=== PATIENT | male | born 1970 | race Hispanic/Latino ===

== ENCOUNTER 2021-06-17 00:01 | Emergency (ER) | payer BC ==
[2021-06-17 00:47] LABS: #Eosinphils 0.1 thou/uL (0.0-0.7); #Lymphocytes 1.2 thou/uL (1.20-3.40); #Monocytes 0.4 thou/uL (0.11-0.59); #Neutrophils 3.2 thou/uL (1.40-6.50); %Basophils 0.2 % (0.0-1.0); %Eosinophils 2.7 % (0.0-10.0); %Lymphocytes 23.4 % (21.0-51.0); %Monocytes 8.3 % (0.0-10.0); %Neutrophils 65.5 % (42.0-75.0); Hemoglobin 16.2 g/dL (14.0-18.0); Mean Corpuscular Hemoglobin 33.1 pg (27.0-31.0); Mean Corpuscular Volume 94.7 fL (78.0-98.0); Mean Platelet Volume 7.9 fL (7.4-10.4); Platelet Count 96 thou/uL (130-400); RBC Distribution Width 12.4 % (11.5-14.5)
== END 2021-06-17 01:00 | disposition home or self-care (01) ==
LOC: ERS 00:01
DX: R04.0 Epistaxis (principal); I10 Essential (primary) hypertension; E11.9 Type 2 diabetes mellitus without complications; F17.290 Nicotine dependence, other tobacco product, uncomplicated
CPT/HCPCS: 36415; 85025; 99283

== ENCOUNTER 2022-04-23 22:52 | Emergency (ER) | payer BC ==
[2022-04-23] MEDS ORDERED: Lidocaine 1% PF 5 ML VIAL ONE (23:44)
[2022-04-23] MEDS ORDERED: Lidocaine 1% MPF 2 ML VIAL ONE (23:44)
== END 2022-04-24 00:32 | disposition home or self-care (01) ==
LOC: ERS 22:52
DX: L02.411 Cutaneous abscess of right axilla (principal); E11.9 Type 2 diabetes mellitus without complications; I10 Essential (primary) hypertension
CPT/HCPCS: 10060